=== PATIENT | female | born 1965 | race Caucasian/White ===

== ENCOUNTER → 2020-08-14 | Outpatient (CLI) | payer OTHER | LOC: MAMO 10:30 | DX: Z12.31 Encounter for screening mammogram for malignant neoplasm of breast (principal) | CPT/HCPCS: 77063; 77067 ==

== ENCOUNTER → 2021-05-25 | Outpatient (CLI) | payer OTHER | LOC: MAMO 09:19 | DX: N64.89 Other specified disorders of breast (principal) | CPT/HCPCS: 76642-LT; 77066; G0279 ==